=== PATIENT | female | born 1995 | race American Indian/Alaskan Native ===

== ENCOUNTER 2017-03-16 14:36 | Emergency (ER) | payer SELFPAY ==
[2017-03-16] MEDS ORDERED: DECADRON IV ONE (15:54)
[2017-03-16] MEDS ORDERED: NACL 0.9% 1000 ML 1,000 ML IV ONE (15:54)
[2017-03-16] MEDS ORDERED: CLEOCIN 600 MG/50 mL 600 MG/50 ML BAG IV ONE (15:54)
[2017-03-16] MEDS ORDERED: TORADOL IV ONE (16:05)
[2017-03-16 16:43] LABS: Basophils % (Auto) 0.4 % (0.0-1.8); Hematocrit 36.1 % (30.3-42.9); Hemoglobin 11.3 gm/dl (10.1-14.3); Mean Corpuscular HGB Conc 31 % (30-34); Mean Corpuscular Volume 76 fl (79-97); Platelet Count 268 K/mm3 (140-440); Red Blood Count 4.77 M/mm3 (3.65-5.03); Red Cell Distribution Width 15.4 % (13.2-15.2); White Blood Count 10.4 K/mm3 (4.5-11.0)
[2017-03-16 17:05] LABS: Anion Gap 16 mmol/L; Blood Urea Nitrogen 10 mg/dL (7-17); Calcium 8.9 mg/dL (8.4-10.2); Carbon Dioxide 23 mmol/L (22-30); Chloride 103.1 mmol/L (98-107); Glucose 108 mg/dL (65-100); Sodium 138 mmol/L (137-145)
[2017-03-16] MEDS ORDERED: NACL ONE (17:13)
[2017-03-16 17:33] LABS: Mean Corpuscular Hemoglobin 24 pg (28-32)
--- NOTE | 2017-03-16 18:10 | Cat Scan Report ---
FINAL REPORT PROCEDURE: CT NECK W CON TECHNIQUE: Computerized axial tomography of the soft tissue neck was performed following the IV injection of iodinated nonionic contrast. HISTORY: peritonsillar abscess COMPARISON: No prior studies are available for comparison. FINDINGS: Mild mucosal thickening is seen in the paranasal sinuses. Mastoid air cells appear clear. There is asymmetric prominence the right-side of the adenoid tonsils compared to the left side. Bailey tonsils appear mildly prominent. There is mild right peritonsillar edema and slight effacement of the right paratonsillar fat. Fat plane remains present. Findings are likely due to tonsillitis. Tonsil malignancy cannot be completely excluded based on this study. No abscess formation is seen. Calcified concretion is seen in the right side of the adenoid tonsils. Mild airway narrowing is seen. Parotid and submandibular glands appear normal. There are few small reactive lymph nodes in the parotid glands with multiple other small reactive lymph nodes throughout the neck. Thyroid gland appears normal. The epiglottis is normal in size. No abnormalities are seen in the glottis. No retropharyngeal edema is seen. IMPRESSION: Probable right-sided adenoid tonsillitis is seen with possible involvement of the palatine tonsils. No abscess formation is seen. Continued clinical follow-up is recommended to assure resolution, as malignancy cannot be completely excluded, but is unlikely given the patient's age.
[2017-03-16 18:27] VITALS: BP 131/95
--- NOTE | 2017-03-16 18:28 | Emergency Department Report ---
ED ENT HPI - General Chief complaint: Sore Throat Stated complaint: DIFFICULT TO SWALLOW Time Seen by Provider: 03/16/17 15:21 Source: patient Mode of arrival: Ambulatory Limitations: No Limitations - History of Present Illness Initial comments: 21-year-old female presents with complaint of 3 days of worsening sore throat. On exam patient is speaking in slightly muffled voice although able to speak in full sentences. Is able to tolerate by mouth fluids but is having difficulty swallowing solids. Subjective fever and chills. Denies any chest pain or shortness of breath. No audible wheezing or stridor on clinical exam. MD complaint: sore throat Onset/Timin -: days(s) Location: throat Severity: moderate Severity scale (0 -10): 5 Quality: aching Consistency: constant Associated Symptoms: cough, sore throat - Related Data Previous Rx's Medication Instructions Recorded Last Taken Type Benzocaine/Menthol [Cepacol Sore 1 each MM Q4H PRN #18 lozenge 03/16/17 Unknown Rx Throat Lozenge] Clindamycin [Clindamycin CAP] 300 mg PO Q6H #28 capsule 03/16/17 Unknown Rx Ibuprofen [Motrin] 600 mg PO Q8H PRN #30 tablet 03/16/17 Unknown Rx Allergies Allergy/AdvReac Type Severity Reaction Status Date / Time No Known Allergies Allergy Unverified 03/16/17 14:44 ED Dental HPI - General Chief complaint: Sore Throat Stated complaint: DIFFICULT TO SWALLOW Time Seen by Provider: 03/16/17 15:21 Source: patient Mode of arrival: Ambulatory Limitations: No Limitations - Related Data Previous Rx's Medication Instructions Recorded Last Taken Type Benzocaine/Menthol [Cepacol Sore 1 each MM Q4H PRN #18 lozenge 03/16/17 Unknown Rx Throat Lozenge] Clindamycin [Clindamycin CAP] 300 mg PO Q6H #28 capsule 03/16/17 Unknown Rx Ibuprofen [Motrin] 600 mg PO Q8H PRN #30 tablet 03/16/17 Unknown Rx Allergies Allergy/AdvReac Type Severity Reaction Status Date / Time No Known Allergies Allergy Unverified 03/16/17 14:44 ED Review of Systems ROS: Stated complaint: DIFFICULT TO SWALLOW Other details as noted in HPI Constitutional: denies: chills, fever Eyes: denies: eye pain, eye discharge, vision change ENT: throat pain. denies: ear pain Respiratory: denies: cough, shortness of breath, wheezing Cardiovascular: denies: chest pain, palpitations Endocrine: no symptoms reported Gastrointestinal: denies: abdominal pain, nausea, diarrhea Genitourinary: denies: urgency, dysuria, discharge Musculoskeletal: denies: back pain, joint swelling, arthralgia Skin: denies: rash, lesions Neurological: denies: headache, weakness, paresthesias Psychiatric: denies: anxiety, depression Hematological/Lymphatic: denies: easy bleeding, easy bruising ED Past Medical Hx - Past Medical History Previous Medical History?: No - Social History Smoking Status: Never Smoker Substance Use Type: None - Medications Home Medications: Home Medications Medication Instructions Recorded Confirmed Last Taken Type Benzocaine/Menthol [Cepacol Sore 1 each MM Q4H PRN #18 lozenge 03/16/17 Unknown Rx Throat Lozenge] Clindamycin [Clindamycin CAP] 300 mg PO Q6H #28 capsule 03/16/17 Unknown Rx Ibuprofen [Motrin] 600 mg PO Q8H PRN #30 tablet 03/16/17 Unknown Rx ED Physical Exam - General Limitations: No Limitations General appearance: alert, in no apparent distress - Head Head exam: Present: atraumatic, normocephalic - Eye Eye exam: Present: normal appearance, PERRL, EOMI - ENT ENT exam: Present: mucous membranes moist - Expanded ENT Exam Expanded Mouth exam: Present: normal external inspection Teeth exam: Present: normal inspection Throat exam: Positive: tonsillar erythema (right-sided tonsillar erythema and mild swelling, uvula is midline) - Neck Neck exam: Present: normal inspection, full ROM - Respiratory Respiratory exam: Present: normal lung sounds bilaterally. Absent: respiratory distress - Cardiovascular Cardiovascular Exam: Present: regular rate, normal rhythm. Absent: systolic murmur, diastolic murmur, rubs, gallop - GI/Abdominal GI/Abdominal exam: Present: soft, normal bowel sounds - Extremities Exam Extremities exam: Present: normal inspection - Back Exam Back exam: Present: normal inspection - Neurological Exam Neurological exam: Present: alert, oriented X3 - Psychiatric Psychiatric exam: Present: normal affect, normal mood - Skin Skin exam: Present: warm, dry, intact, normal color. Absent: rash ED Course Vital Signs 03/16/17 14:41 Temperature 98.6 F Pulse Rate 111 H Respiratory 20 Rate Blood Pressure 151/110 O2 Sat by Pulse 100 Oximetry ED Medical Decision Making - Lab Data Result diagrams: 03/16/17 16:13 03/16/17 16:13 - Medical Decision Making A/P: Peritonsillar infection/cellulitis 1-case discussed with Dr. Presley also examined the patient clinically 2-patient given dose of IV clindamycin will give one week course of clindamycin 3-Motrin when necessary, throat lozenges when necessary for discomfort 4-I will give the patient referral to ENT and advised patient to return to the ED if she experiences any shortness of breath any difficulty swallowing liquids or solids any persistent nausea and vomiting or any fever chills or persistent 5- CT shows no discrete abscess but does show tonsillar edema 6- patient feels significant relief of discomfort after receiving Toradol and 1 dose of Decadron. Is able to speak in full sentences and swallow fluids without any difficulty. no clinical signs of resp distress, no stridor, VS are now normalizing Critical care attestation.: If time is entered above; I have spent that time in minutes in the direct care of this critically ill patient, excluding procedure time. ED Disposition Clinical Impression: Peritonsillar cellulitis Disposition: DISCHARGED TO HOME OR SELFCARE Is pt being admited?: No Does the pt Need Aspirin: No Condition: Stable Instructions: Tonsillitis (ED), Pharyngitis (ED) Prescriptions: Benzocaine/Menthol [Cepacol Sore Throat Lozenge] 1 each MM Q4H PRN #18 lozenge PRN Reason: Sore Throat Clindamycin [Clindamycin CAP] 300 mg PO Q6H #28 capsule Ibuprofen [Motrin] 600 mg PO Q8H PRN #30 tablet PRN Reason: Pain Referrals: [facility] [Provider Group] - 3-5 Days [facility] [Provider Group] - 3-5 Days NELY MONTES DE OCA MD [Staff Physician] - 3-5 Days Forms: Work/School Release Form(ED) Time of Disposition: 18:29
== END 2017-03-16 18:44 | disposition home or self-care (01) ==
LOC: ED 14:36
DX: J36 Peritonsillar abscess (principal)
CPT/HCPCS: 36415; 70491; 80048; 81025; 85025; 87116; 87430; 96365; 96375; 99284; J1100; J1885; J7030; Q9967